=== PATIENT | female | born 1965 | race Asian ===

== ENCOUNTER 2016-12-17 04:55 | Emergency (ER) | payer OTHER ==
[~2016-12-17] VITALS: Ht 154.9 cm; Wt 59.0 kg
[2016-12-17 05:05] VITALS: BP 159/82
--- NOTE | 2016-12-17 05:05 | NUR ---
TO ER BED 4
--- NOTE | 2016-12-17 05:10 | NUR ---
PATIENT PRESENTS TO ED WITH C/O ABD PAIN . PT DENIES N/V/D; SKIN IS PINK/WARM/DRY; AAOX4 WITH EVEN AND STEADY GAIT; LUNGS CLEAR BL; HR EVEN AND REGULAR; PT DENIES ANY FEVER, CP, SOB, OR COUGH AT THIS TIME; PATIENT STATES PAIN OF 10/10 AT THIS TIME; VSS; PATIENT POSITIONED FOR COMFORT; HOB ELEVATED; BEDRAILS UP X2; BED DOWN. ER MD MADE AWARE OF PT STATUS.
[2016-12-17] MEDS ORDERED: MORPHINE SULFATE 4 MG/ML SYR IVP ONE ×2 (05:20→06:25)
--- NOTE | 2016-12-17 05:30 | NUR ---
LABS DRAWN AND PIV STARTED WITHOUT PROBLEMS
[2016-12-17] MEDS ORDERED: ONDANSETRON 4 MG/2 ML VIAL IVP ONE (05:40)
[2016-12-17 05:49] LABS: BASOPHILS # (AUTO) 0.3 K/uL (0.00-0.22); EOSINOPHILS # (AUTO) 0.1 K/uL (0-0.4); EOSINOPHILS % (AUTO) 2.2 % (0.0-4.0); HEMATOCRIT 44.2 % (36-48); HEMOGLOBIN 14.4 g/dL (12.0-16.0); LYMPHOCYTES # (AUTO) 2.1 K/uL (2.5-16.5); MEAN CORPUSCULAR HEMOGLOBIN 30 pg (27-31); MEAN CORPUSCULAR HGB CONC 33 g/dL (33-37); MEAN CORPUSCULAR VOLUME 92 fL (80-94); MONOCYTES # (AUTO) 0.3 K/uL (0.8-1.0); MONOCYTES % (AUTO) 4.2 % (1.7-9.3); NEUTROPHILS # (AUTO) 3.6 K/uL (1.8-7.7); NEUTROPHILS % (AUTO) 56.6 % (42.2-75.2); PLATELET COUNT (AUTO) 205 K/uL (140-450); RED BLOOD CELL COUNT(AUTO) 4.79 MIL/uL (4.20-5.40); RED CELL DISTRIBUTION WIDTH 11.8 % (11.6-13.7); WHITE BLOOD COUNT (AUTO) 6.4 K/uL (4.8-10.8)
--- NOTE | 2016-12-17 05:50 | NUR ---
PT TO CT VIA WC IN STABLE CONDITION
--- NOTE | 2016-12-17 05:50 | NUR ---
Julia franco in [facility] - 12/17/16 at 0550 by DANA PT TAKEN FOR CT VIA WHEELCHAIR.
[2016-12-17 06:01] LABS: ANION GAP 11.8 (8-16); CALCIUM 8.6 mg/dL (8.5-10.1); CARBON DIOXIDE 29.6 mmol/L (21-32); POTASSIUM 3.4 mmol/L (3.5-5.1)
--- NOTE | 2016-12-17 06:05 | NUR ---
PT RETURNED FROM CT VIA WC IN STABLE CONDITION
[2016-12-17 06:07] LABS: ALBUMIN 3.8 g/dL (3.4-5.0); TOTAL BILIRUBIN 0.8 mg/dL (0.0-1.0); TOTAL PROTEIN, SERUM 7.2 g/dL (6.4-8.2)
--- NOTE | 2016-12-17 06:30 | NUR ---
PT STILL HAVING ABD PAIN, 2ND DOSE OF MORPHINE GIVEN.
[2016-12-17] MEDS ORDERED: NACL 0.9% 1,000 ML IV ONE (06:45)
--- NOTE | 2016-12-17 06:45 | NUR ---
DR SANTORO TALKED WITH PT REGARDING CT RESULTS
[2016-12-17 07:08] LABS: BILIRUBIN,URINE NEGATIVE (NEGATIVE); BLOOD, URINE 3+ (NEGATIVE); COLOR,URINE YELLOW (YELLOW); LEUKOCYTE ESTERASE ,URINE NEGATIVE (NEGATIVE); NITRITE, URINE NEGATIVE (NEGATIVE); PH,URINE 5.5 (5.0-9.0); PROTEIN,URINE NEGATIVE (NEGATIVE); UGLUCOSE NEGATIVE (NEGATIVE); UROBILINOGEN,URINE 0.2 EU/dL (0.2 - 1)
[2016-12-17 07:15] LABS: RBC,URINE 3-10 (FEW) /HPF (0-5); WBC,URINE 0-3 /HPF (0-5)
[2016-12-17 07:16] LABS: BACTERIA,URINE 1+ /HPF (None Seen); CALCIUM OXALATE CRYSTALS,UR 0-3 /HPF (None Seen); SQUAMOUS EPITHELIAL CELL,UR 0-3 /LPF (0-3 (FEW)); URINE AMORPHOUS URATE 2+ /HPF (None Seen)
[2016-12-17 07:19] LABS: APPEARANCE,URINE CLOUDY (CLEAR)
--- NOTE | 2016-12-17 07:23 | NUR ---
IV removed, catheter intact and site benign. Applied folded 4x4 gauze and tape to stop bleeding. PT TOLERATED PROCEDURE WELL.
[2016-12-17 07:25] VITALS: BP 143/92
--- NOTE | 2016-12-17 07:25 | NUR ---
Patient discharged with v/s stable. Written and verbal after care instructions given and explained. Patient alert, oriented and verbalized understanding of instructions. Ambulatory with steady gait. All questions addressed prior to discharge. ID band removed. Patient advised to follow up with PMD. Rx of MOTRIN 600MG TAB & NORCO 5MG-325MG TAB given. Patient educated on indication of medication including possible reaction and side effects. Opportunity to ask questions provided and answered.
== END 2016-12-17 07:25 | disposition home or self-care (01) ==
LOC: MED 04:55
DX: N20.0 Calculus of kidney (principal); Z88.1 Allergy status to other antibiotic agents
CPT/HCPCS: 36415; 74176; 80053; 81001; 81025; 83690; 85025; 87086; 96361; 96374; 96375; 96376; 99285; J2270; J2405; J7030